=== PATIENT | male | born 1965 | race African-American/Black ===

== ENCOUNTER 2022-05-04 10:34 | Inpatient (IN) ==
[2022-05-04 11:30] LABS: Bacteria,Urine Occasional /HPF (Few); Bilirubin,Urine Negative (Negative); Blood, Urine Negative (Negative); Glucose,Urine (UA) >1000 mg/dL (Negative); Ketones,Urine 15 mg/dL (Negative); Mucus,Urine Occasional /LPF (Occasional); Nitrite,Urine Negative (Negative); Protein,Urine Negative (Negative); RBC,Urine <1 /HPF (0-4); Urine Appearance Clear (Clear); Urine Color Yellow (Yellow); Urine Specific Gravity < 1.005 (1.001-1.035); Urine Urobilinogen 0.2 eU/dL (<2.0)
[2022-05-04] MEDS ORDERED: SODIUM CHLORIDE 0.9% 1,000 ML IV STA (11:38)
[2022-05-04 12:07] LABS: Basophils % 0.2 % (0.0-0.8); Hematocrit 59.5 VOL% (42.0-52.0); Hemoglobin 17.6 GM/DL (14.0-18.0); Immature Granulocytes % 0.5 %; Immature Granulocytes Absolute 0.06 #; Lymphocytes # 0.7 10*3/uL (1.4-4.0); Lymphocytes % 6.3 % (21.2-54.2); Mean Corpuscular HGB Conc 29.6 GM/DL (32-36); Mean Platelet Volume 12.7 FL (9.6-12.0); Monocytes # 0.3 10*3/uL (0.11-0.8); Monocytes % 2.7 % (1.7-12.7); Neutrophils % 90.3 % (38.7-73.9); Platelet Count 218 T/CUMM (130-400); Red Blood Count 6.61 MC/CUMM (3.8-5.5); Red Cell Distribution Width 15.5 % (9.3-17.3); White Blood Count 11.2 T/CUMM (4-12)
[2022-05-04 12:09] LABS: Bilirubin,Total 0.6 MG/DL (0.20-1.00); Osmolality,Calculated 361.3 MOS/KG (273-304); Potassium 5.8 MMOL/L (3.5-5.1); Total Protein 9.9 G/DL (6.4-8.2)
[2022-05-04] MEDS ORDERED: INSULIN REGULAR 100 UNIT/ML IV STA (12:14)
[2022-05-04] MEDS ORDERED: SODIUM CHLORIDE 0.9% 1,000 ML IV SCH (12:30)
[2022-05-04] MEDS ORDERED: GLUCAGON 1 MG VIAL IM PRN (13:23)
[2022-05-04] MEDS ORDERED: DEXTROSE 50% 25 GM/50 ML SYRINGE IV PRN (13:41)
[2022-05-04] MEDS ORDERED: DEXTROSE 10% 250 ML BAG IV PRN ×3 (13:42→14:00)
[2022-05-04 13:59] LABS: Calcium 10.6 MG/DL (8.5-10.1); Osmolality,Calculated 363.1 MOS/KG (273-304); Potassium 5.9 MMOL/L (3.5-5.1)
[2022-05-04] MEDS ORDERED: DEXTROSE 5% 1,000 ML IV SCH (14:00)
[2022-05-04] MEDS: INSULIN LISPRO 100 UNIT/ML SUBCUT SCH ×3 (14:25→22:40)
[2022-05-04] MEDS: ENOXAPARIN 40 MG/0.4 ML SYRINGE SUBCUT SCH (14:25)
[2022-05-04] MEDS ORDERED: ONDANSETRON 4 MG/2 ML VIAL IV PRN (15:15)
[2022-05-04] MEDS ORDERED: DOCUSATE SODIUM 100 MG CAPSULE PO PRN (15:16)
[2022-05-04] MEDS: DEXTROSE 5% 1,000 ML IV SCH ×2 (15:54→19:53)
[2022-05-04] MEDS ORDERED: INSULIN REGULAR 100 UNIT/ML IV ONE ×2 (17:00→21:30)
[2022-05-04 18:01] LABS: Arterial Base Excess iSTAT 4 MMOL/L (-2.5-2.5); Arterial Bicarbonate iSTAT 30.3 MMOL/L (20-26); Arterial O2 Saturation iSTAT 94 % (95-100); Arterial PCO2 iSTAT 50 MM HG (35-48); Arterial PO2 iSTAT 72 MM HG (80-95); Arterial Total CO2 iSTAT 32 MMO/L (23-27); Arterial pH iSTAT 7.391 (7.35-7.45)
[2022-05-04 18:02] LABS: Calcium 10.6 MG/DL (8.5-10.1); Potassium 4.6 MMOL/L (3.5-5.1)
[2022-05-04] MEDS ORDERED: INSULIN GLARGINE 100 UNIT/ML SUBCUT SCH (21:00)
[2022-05-04] MEDS: hydrALAZINE 20 MG/1 ML VIAL IV PRN (21:20)
[2022-05-04 21:49] LABS: Calcium 8.9 MG/DL (8.5-10.1); Osmolality,Calculated 348.8 MOS/KG (273-304); Potassium 3.6 MMOL/L (3.5-5.1)
[2022-05-05] MEDS: DEXTROSE 5% 1,000 ML IV SCH ×4 (02:00→19:43)
[2022-05-05] MEDS: INSULIN LISPRO 100 UNIT/ML SUBCUT SCH ×7 (02:57→23:19)
[2022-05-05] MEDS: hydrALAZINE 20 MG/1 ML VIAL IV PRN (03:50)
[2022-05-05 04:23] LABS: Basophils % 0.2 % (0.0-0.8); Eosinophils % 0.1 % (0.00-10.9); Hematocrit 55.6 VOL% (42.0-52.0); Hemoglobin 16.8 GM/DL (14.0-18.0); Immature Granulocytes % 0.6 %; Immature Granulocytes Absolute 0.07 #; Lymphocytes # 1.3 10*3/uL (1.4-4.0); Lymphocytes % 10.6 % (21.2-54.2); Mean Corpuscular HGB Conc 30.2 GM/DL (32-36); Mean Corpuscular Volume 87.6 FL (87-102); Mean Platelet Volume 11.7 FL (9.6-12.0); Monocytes # 0.6 10*3/uL (0.11-0.8); Monocytes % 4.6 % (1.7-12.7); Neutrophils % 83.9 % (38.7-73.9); Platelet Count 208 T/CUMM (130-400); Red Blood Count 6.35 MC/CUMM (3.8-5.5); Red Cell Distribution Width 14.2 % (9.3-17.3); White Blood Count 12.2 T/CUMM (4-12)
[2022-05-05 04:41] LABS: Albumin 3.6 G/DL (3.4-5.0); Bilirubin,Total 0.5 MG/DL (0.20-1.00); Calcium 10.2 MG/DL (8.5-10.1); Osmolality,Calculated 339.9 MOS/KG (273-304); Risk Ratio 4.06; Thyroid Stimulating Hormone 2.67 uIU/ml (0.358-3.74); Total Protein 8.8 G/DL (6.4-8.2); VLDL Cholesterol 37.2 MG/DL
[2022-05-05] MEDS ORDERED: POTASSIUM CHLORIDE 20 MEQ TABLET PO ONE (05:00)
[2022-05-05] MEDS ORDERED: SODIUM CHLORIDE 0.45% 1,000 ML IV SCH (06:30)
[2022-05-05] MEDS: carvediloL 12.5 MG TABLET PO SCH ×2 (08:08→20:44)
[2022-05-05] MEDS: ATORVASTATIN 20 MG TABLET PO SCH (08:08)
[2022-05-05] MEDS: PANTOPRAZOLE 40 MG TABLET PO SCH (08:08)
[2022-05-05] MEDS: ENOXAPARIN 40 MG/0.4 ML SYRINGE SUBCUT SCH (12:52)
[2022-05-05] MEDS: amLODIPine 5 MG TABLET PO SCH (13:10)
[2022-05-05] MEDS ORDERED: metFORMIN 500 MG TABLET PO SCH (17:00)
[2022-05-05] MEDS ORDERED: INSULIN GLARGINE 100 UNIT/ML SUBCUT SCH (21:00)
[2022-05-06 03:35] LABS: Basophils % 0.3 % (0.0-0.8); Eosinophils # 0.1 10*3/uL (0.0-0.87); Eosinophils % 0.6 % (0.00-10.9); Hematocrit 46.2 VOL% (42.0-52.0); Hemoglobin 14.1 GM/DL (14.0-18.0); Immature Granulocytes % 0.2 %; Immature Granulocytes Absolute 0.02 #; Lymphocytes # 2.5 10*3/uL (1.4-4.0); Lymphocytes % 21.2 % (21.2-54.2); Mean Corpuscular HGB Conc 30.5 GM/DL (32-36); Mean Corpuscular Volume 87.8 FL (87-102); Mean Platelet Volume 11.5 FL (9.6-12.0); Monocytes # 0.4 10*3/uL (0.11-0.8); Monocytes % 3.8 % (1.7-12.7); Neutrophils % 73.9 % (38.7-73.9); Platelet Count 146 T/CUMM (130-400); Red Blood Count 5.26 MC/CUMM (3.8-5.5); Red Cell Distribution Width 13.7 % (9.3-17.3); White Blood Count 11.6 T/CUMM (4-12)
[2022-05-06 03:36] VITALS: BP 118/80
[2022-05-06 03:48] LABS: Calcium 8.6 MG/DL (8.5-10.1); Osmolality,Calculated 318.7 MOS/KG (273-304); Potassium 3.3 MMOL/L (3.5-5.1)
[2022-05-06 03:49] LABS: Albumin 2.8 G/DL (3.4-5.0); Calcium 8.7 MG/DL (8.5-10.1); Osmolality,Calculated 320.6 MOS/KG (273-304); Phosphorous 3.3 MG/DL (2.5-4.9); Potassium 3.4 MMOL/L (3.5-5.1)
[2022-05-06] MEDS: POTASSIUM CHLORIDE 20 MEQ TABLET PO PRN ×2 (04:05→06:04)
[2022-05-06] MEDS: INSULIN LISPRO 100 UNIT/ML SUBCUT SCH ×3 (04:05→11:48)
[2022-05-06] MEDS: DEXTROSE 5% 1,000 ML IV SCH (06:04)
[2022-05-06] MEDS: metFORMIN 500 MG TABLET PO SCH ×2 (08:04→09:20)
[2022-05-06] MEDS: PANTOPRAZOLE 40 MG TABLET PO SCH (08:04)
[2022-05-06] MEDS: carvediloL 12.5 MG TABLET PO SCH (08:04)
[2022-05-06] MEDS: ATORVASTATIN 20 MG TABLET PO SCH (08:04)
[2022-05-06] MEDS: amLODIPine 5 MG TABLET PO SCH (08:04)
== END 2022-05-06 11:55 | disposition home or self-care (01) | DRG 638 ==
LOC: N.ED 10:34 → N.EDINP 13:23 → N.3E 18:31 → N.CC 18:50
PROVIDERS: ADMIT Internal Medicine Geriatric Medicine; ATTEND Internal Medicine Geriatric Medicine